=== PATIENT | male | born 1950 | race Caucasian/White ===

== ENCOUNTER 2021-03-09 07:33 | Outpatient (REF) | payer OTHER, SELFPAY | END 2021-03-09 07:34 | disposition home or self-care (01) | LOC: HO.LAB 07:33 | PROVIDERS: Visit Provider Internal Medicine | DX: Z20.822 Contact with and (suspected) exposure to COVID-19 (principal) | CPT/HCPCS: C9803; U0003; U0005 ==

== ENCOUNTER 2021-03-10 12:46 | Outpatient (REF) | payer OTHER, SELFPAY ==
[2021-03-10 13:39] LABS: Influenza A PCR NEGATIVE (Negative); Influenza B PCR NEGATIVE (Negative); Resp Syncy Virus RNA Qual PCR NEGATIVE (Negative); SARS COV2 PCR INHOUSE NEGATIVE (Negative)
== END 2021-03-10 12:47 | disposition home or self-care (01) ==
LOC: HO.LAB 12:46
PROVIDERS: Visit Provider Internal Medicine
DX: Z20.822 Contact with and (suspected) exposure to COVID-19 (principal)
CPT/HCPCS: 0241U; 36415; C9803

== ENCOUNTER 2022-06-30 06:23 | Day surgery (SDC) | payer MEDICARE, SELFPAY ==
--- NOTE | 2022-06-29 12:08 | HO.ANESPROP2 ---
Documented by User: Gisele Bardales NP 06/29/22 12:08 HPI - Anesthesia Eval Consult details Narrative: 72yo M for Colonoscopy PMFSH Active Problems Active Problems: All Active Problems (Updated 12/15/21 @ 17:31 by Tyler Orona MD) COVID-19 virus infection (Acute) Colon cancer screening (Acute) Impaired glucose tolerance (Acute) Splenomegaly (Acute) Myelofibrosis (Acute) Essential thrombocythemia (Acute) Weight loss (Acute) Hypercholesterolemia (Acute) Past Medical History Medical History Alcohol abuse Hypercholesterolemia Insomnia Prostate cancer Thrombocytosis Family History Family History Father Prostate cancer Mother Hypertension Brother Parkinson disease Hypertension Sister In good health Maternal Grandfather Myocardial infarction Paternal Grandfather Myocardial infarction Surgical History Surgical History H/O basal cell carcinoma excision History of appendectomy History of prostatectomy History of umbilical hernia repair History of vasectomy Social History Social History Housing: House Alcohol intake: current Alcohol intake frequency: a few times a week Patient Tobacco Use Status: Never used Tobacco e-Cigarette/Vaping Use: Never Used Second Hand Smoke Exposure: No Use of substances other than those prescribed or required for medical reasons: No Are you DNR?: No Advance Directives: No Advance Directives Information Provided: Yes Current occupational status: retired Cognitive needs: No Hearing needs: No Vision needs: No Meds Allergies Allergy/AdvReac Type Severity Reaction Status Date / Time No Known Allergies Allergy Verified 03/18/22 09:47 Home Medications Medication Instructions Recorded Confirmed Last Taken Type aspirin 81 mg tablet,delayed 81 mg PO DAILY 07/08/20 03/18/22 06/26/22 History release (Adult Aspirin Regimen) tadalafil 10 mg tablet (Cialis) 10 mg PO DAILY PRN Erectile 07/08/20 03/18/22 06/23/22 History Dysfunction ruxolitinib 15 mg tablet (Jakafi) 15 mg PO BID 06/30/22 06/30/22 Unknown History Exam Exam Date and Time: June 29, 2022 1208 Assessment and Plan Assessment Anesthesia Assessment: Chart Reviewed Documented by User: Norm Rodriguez MD 06/30/22 16:02 [facility] Past Medical History Medical History Alcohol abuse Hypercholesterolemia Insomnia Prostate cancer Thrombocytosis Functional capacity: independent ambulation Family History Family History Father Prostate cancer Mother Hypertension Brother Parkinson disease Hypertension Sister In good health Maternal Grandfather Myocardial infarction Paternal Grandfather Myocardial infarction Family history of problems with anesthesia: No Surgical History Surgical History H/O basal cell carcinoma excision History of appendectomy History of prostatectomy History of umbilical hernia repair History of vasectomy History of Problems with Anesthesia: No Social History Social History Housing: House Alcohol intake: current Alcohol intake frequency: a few times a week Patient Tobacco Use Status: Never used Tobacco e-Cigarette/Vaping Use: Never Used Second Hand Smoke Exposure: No Use of substances other than those prescribed or required for medical reasons: No Are you DNR?: No Advance Directives: No Advance Directives Information Provided: Yes Current occupational status: retired Cognitive needs: No Hearing needs: No Vision needs: No Meds Allergies Allergy/AdvReac Type Severity Reaction Status Date / Time No Known Allergies Allergy Verified 03/18/22 09:47 Home Medications Medication Instructions Recorded Confirmed Last Taken Type aspirin 81 mg tablet,delayed 81 mg PO DAILY 07/08/20 03/18/22 06/26/22 History release (Adult Aspirin Regimen) tadalafil 10 mg tablet (Cialis) 10 mg PO DAILY PRN Erectile 07/08/20 03/18/22 06/23/22 History Dysfunction ruxolitinib 15 mg tablet (Jakafi) 15 mg PO BID 06/30/22 06/30/22 Unknown History Exam Airway Mallampati Class: III TM Dist: >3cm Neck ROM: Full Loose/Missing/Broken Teeth: Yes (Fillings ) Heart: S1,S2 Lungs: b/l breath sounds Assessment and Plan Assessment Anesthesia Assessment: Anesthesia Plan Discussed Final Anesthetic Review Family History of Problems with Anesthesia: No History of Problems with Anesthesia: No NPO: Yes ASA Class: III Final Preanesthetic Review: Meds/Allgs Chart Reviewed, Consent Obtained/Reviewed and Anes Risks/Benef Reviewed Patient Risk: Intermediate Procedure Risk: Intermediate Anesthetic Plan Anesthetic Plan: MAC: Disposition: Standard PACU
[2022-06-30 06:41] LABS: Hemoglobin 10.2 g/dl (14.0-18.0); Mean Corpuscular HGB Conc 32.9 g/dl (31.0-36.0); Mean Corpuscular Hemoglobin 29.8 pg (27.0-33.0); Mean Corpuscular Volume 90.6 fL (80.0-98.0); Mean Platelet Volume 10.8 fL (9.4-12.4); Platelet Count 151 X10*3/uL (160-400); Red Blood Count 3.42 X10*6/uL (4.60-5.80); Red Cell Distribution Width 22.1 % (11.0-16.0); White Blood Count 11.5 X10*3/uL (4.8-10.8)
[2022-06-30 06:42] LABS: NRBC Pct Auto 16.9 /100WBC (0.0-0.2)
--- NOTE | 2022-06-30 06:56 | PC.NURSE ---
pt s/p lab draw had dsd somewhat removed, but no oozing at site. Moderate amount of blood dripping onto sleeve of pt shirt & jacket sleeve, immediate removal of upper clothing, cleaned & still no oozing at site noted. Pt states he thinks lab spilled blood on him, cleaned and still no oozing at puncture site. site of left ac. with small raised with erasertip hematoma, pressure dressing applied & lab notified.
[2022-06-30 06:59] LABS: INTERNATIONAL NORM RATIO 1.3 (0.9-1.1); Prothrombin Time 14.7 SEC (10.0-13.1)
[2022-06-30 07:06] VITALS: BP 114/64; PULSE 86; RESP 18; TEMP 36.3; O2SAT 100; BMI 23.0
[2022-06-30] MEDS: Lactated Ringers 1,000 ML 100 ML IVCONT (07:24)
--- NOTE | 2022-06-30 07:41 | PC.NURSE ---
late entry. speech and hearing director Sukumar lew to see pt, assured pt that it was his blood & meal ticket & reimbursement of dry maternity floor supervisor will be paid for by [facility] [place].
[2022-06-30 08:33] VITALS: BP 105/62; PULSE 86; RESP 16; TEMP 36.8; O2SAT 97
--- NOTE | 2022-06-30 08:37 | PM.OP ---
Brief Operative Note Date of Service: 06/30/22 Pre-op diagnosis: Screening Post-op diagnosis: other (Polyps) Procedure: Colonoscopy to the cecum and TI with bx/removal of polyp, hot snare polypectomy, and with placement of Resolution clip x 1 on each polypectomy site Surgeon: Lm Eller Anesthesia: MAC Was an Street [employer] Line Installer used for this Procedure?: No Estimated blood loss (mL): 2.0 Pathology: other (A. Cecal polyp B. Polyp at 15cm) Condition: stable Disposition: PACU
[2022-06-30 08:48] VITALS: BP 110/62; PULSE 77; RESP 16; TEMP 36.9; O2SAT 96
--- NOTE | 2022-06-30 09:35 | OP_ITS ---
SURGEON: Lm Eller MD INDICATIONS: The patient presents for evaluation of colorectal cancer screening. Full consent has been obtained from him for this, including risks of bleeding and perforation. PREOPERATIVE DIAGNOSIS: Colorectal cancer screening. POSTOPERATIVE DIAGNOSIS: PROCEDURE PERFORMED: Colonoscopy to the cecum and terminal ileum with biopsy and removal of polyp, hot snare polypectomy, and placement of resolution clips x2. ESTIMATED BLOOD LOSS: COMPLICATIONS: ANESTHESIA: Monitored anesthesia care. ASSISTANTS: SPECIMENS: POSTOPERATIVE DIAGNOSES: Colorectal cancer screening, colon polyps, diverticulosis, and internal hemorrhoids. DESCRIPTION OF PROCEDURE: The patient was placed in the left lateral decubitus position. The digital rectal exam revealed no abnormalities. The Olympus video pediatric colonoscope was entered into the rectum and advanced easily to the cecum. Once in the cecum, I did identify cecal pouch with appendiceal orifice and a normal-appearing ileocecal valve. The terminal ileum was cannulated and appeared normal. The scope was withdrawn back in the colon. The entire cecum and ileocecal valve were well visualized. There was an approximately 4 mm polyp in the cecum, which was biopsied and completely removed with cold biopsy forceps. There was no active bleeding, but a single resolution clip was applied with good deployment and good hemostasis given that he has to go back on aspirin. The scope was then slowly withdrawn assessing all mucosal surfaces carefully. Preparation was excellent. At 15 cm, there was an approximately 10-12 mm polyp on a short stalk, which was removed by hot snare polypectomy and recovered by withdrawing on the tip of the colonoscope. The scope was advanced back to the polypectomy site, which appeared clean, without any sign of residual polyp nor bleeding. A single resolution clip was applied with good deployment and good hemostasis. I did not visualize any other polyps, colitis, or angiodysplasia. There was a moderate amount of sigmoid diverticulosis. In the rectum, scope was retroflexed visualizing internal hemorrhoids, but no other pathology. The rectal mucosa appeared normal. The scope was straightened and withdrawn from the patient. He tolerated the procedure well and was returned to the recovery area in stable condition. IMPRESSION: 1. Colon polyps. 2. Diverticulosis. 3. Internal hemorrhoids. PLAN: The results of the pathology will be checked. I would recommend a repeat colonoscopy in 5 years. He was advised to resume his aspirin today. He will see me otherwise on a p.r.n. basis. MD GRAHAM Wiseman/BRENDA / [id number]
== END 2022-06-30 09:18 | disposition home or self-care (01) ==
PROVIDERS: Nurse Practitioner; PCP Internal Medicine; Visit Provider Internal Medicine
PROC: 0DJD8ZZ Inspection of Lower Intestinal Tract, Via Natural or Artificial Opening Endoscopic (ICD-10-PCS; CPT 45378; principal; 2022-06-30 07:30)
DX: Z12.11 Encounter for screening for malignant neoplasm of colon (principal); Z86.010 Personal history of colon polyps; D12.0 Benign neoplasm of cecum; D12.7 Benign neoplasm of rectosigmoid junction; K57.30 Diverticulosis of large intestine without perforation or abscess without bleeding; K64.8 Other hemorrhoids; D75.839 Thrombocytosis, unspecified; Z79.82 Long term (current) use of aspirin; Z79.899 Other long term (current) drug therapy
CPT/HCPCS: 45385; 45380; 36415; 85027; 85610; 88305; J2370